=== PATIENT | male | born 1955 | race Asian ===

== ENCOUNTER 2018-11-05 06:56 | Day surgery (SDC) | payer MEDICAID ==
[~2018-11-05] VITALS: Ht 170.2 cm; Wt 97.5 kg
[2018-11-05] MEDS ORDERED: METF500T2 PO (07:39)
[2018-11-05] MEDS ORDERED: HYDR-3298 PO (07:39)
[2018-11-05] MEDS ORDERED: AMLO10TA PO (07:39)
[2018-11-05] MEDS ORDERED: ASPI81CT95 PO (07:39)
[2018-11-05] MEDS ORDERED: ATOR20TA PO (07:39)
[2018-11-05] MEDS ORDERED: ALLO100T21 PO (07:39)
[2018-11-05] MEDS ORDERED: LIDOCAINE 2% 100 MG/5 ML UJET TP ONE (08:39)
[2018-11-05] MEDS ORDERED: fentaNYL 0.05 MG/ML VIAL ONE (08:39)
[2018-11-05] MEDS ORDERED: fentaNYL 0.05 MG/ML VIAL IVP ONE (14:05)
== END 2018-11-05 09:59 | disposition home or self-care (01) ==
LOC: MOR 06:56 → MMU 06:58 → MOR 09:59
PROVIDERS: ATTEND Internal Medicine Gastroenterology
DX: Z09 Encounter for follow-up examination after completed treatment for conditions other than malignant neoplasm (principal); D12.3 Benign neoplasm of transverse colon; K57.30 Diverticulosis of large intestine without perforation or abscess without bleeding; Z86.010 Personal history of colon polyps; E11.9 Type 2 diabetes mellitus without complications; I10 Essential (primary) hypertension; E78.5 Hyperlipidemia, unspecified; Z87.891 Personal history of nicotine dependence; Z79.82 Long term (current) use of aspirin; Z79.84 Long term (current) use of oral hypoglycemic drugs; Z79.899 Other long term (current) drug therapy; E66.9 Obesity, unspecified; Z68.33 Body mass index [BMI] 33.0-33.9, adult
CPT/HCPCS: 45385; J3010